=== PATIENT | female | born 2000 | race Caucasian/White ===

== ENCOUNTER 2024-03-26 11:38 | Emergency (ER) | payer OTHER, SELFPAY ==
--- NOTE | ~2024-03-26 | XR_ITS ---
Left ankle Technique: AP, oblique, and lateral views were obtained. Clinical History: Injury Findings: No acute fracture or dislocation is seen. Osseous alignment is anatomic. Ankle mortise and other visualized joint spaces are preserved. Soft tissues are otherwise unremarkable. Impression: Unremarkable left ankle. Reviewed, dictated and finalized at location . Impression: Unremarkable left ankle.
[2024-03-26 11:47] VITALS: BP 99/67; PULSE 86; RESP 16; TEMP 36.2; O2SAT 99
--- NOTE | 2024-03-26 11:59 | ED.LOWEXIN ---
HPI - Extremity Injury (Lower) General Chief Complaint: Extremity Injury, Lower Stated Complaint: INJURED L ANKLE Time Seen by Provider: 03/26/24 11:53 Source: patient and RN notes reviewed Mode of arrival: ambulatory Limitations: no limitations History of Present Illness HPI Narrative: Patient presents today complaining of left ankle injury. She tripped over a box 1 week ago and twisted ankle. No pain at rest, but this increases with movement and weight-bearing. She has been elevating the ankle, icing it, and resting it, which has provided some mild relief. Related Data Home Medications Medication Instructions Recorded Confirmed cyclobenzaprine 10 mg tablet 10 mg PO PRN PRN Back Pain 03/26/24 03/26/24 Allergies Allergy/AdvReac Type Severity Reaction Status Date / Time ibuprofen Allergy Hives Verified 03/26/24 11:55 Review of Systems Review of Systems: CONSTITUTIONAL: Denies body aches, fever, chills, or sweats. EYES: Denies visual changes, redness, or discharge. ENT: Denies rhinorrhea, congestion, sore throat, or otalgia. CARDIOVASCULAR: Denies chest pain, palpitations, or edema. RESPIRATORY: Denies cough or dyspnea. GASTROINTESTINAL: Denies abdominal pain, nausea, vomiting, or diarrhea. GENITOURINARY: Denies dysuria or hematuria. SKIN: Denies rash, itching, or wounds. MUSCULOSKELETAL: Denies back pain, or myalgia.+ left ankle pain and swelling NEUROLOGIC: Denies headache, numbness, tingling, or weakness. PSYCH: Denies depression or anxiety. PMFSH Comments At time of signature, I have reviewed and agree with nursing past medical, surgical, social and family history unless otherwise noted. Please see nursing chart for further information. There is no relevant family history pertinent to the presenting complaint Exam Narrative: GENERAL: Well-appearing, well-nourished, and in no acute distress. HEAD: Normocephalic, atraumatic. EYES: EOMI. No redness or drainage. Conjunctivae normal. ENT: Mucous membranes pink and moist. NECK: Normal AROM. CHEST: No respiratory distress. EXTREMITIES: Left ankle: Tenderness and mild soft tissue swelling to the lateral ankle, including the lateral malleolus. This extends proximally up the fibula approximately 5-6 cm. No tenderness edema to foot. No ecchymosis about the foot or ankle. Distal sensation intact. Capillary refill normal. Radial pulse normal. Pain with passive external rotation. SKIN: Warm, dry, no rash. Capillary refill normal. Normal skin turgor. NEURO: No focal deficits. Alert and oriented x3. Gait steady. PSYCH: Normal affect. No signs of depression or anxiety. Course Course Level of Care: Express Care Visit Vital Signs Vital signs: Vital Signs Temperature 97.2 F L 03/26/24 11:47 Pulse Rate 86 03/26/24 11:47 Respiratory Rate 16 03/26/24 11:47 Blood Pressure 99/67 L 03/26/24 11:47 Pulse Oximetry 99 03/26/24 11:47 Temperature 97.2 F L 03/26/24 11:47 Pulse Rate 86 03/26/24 11:47 Respiratory Rate 16 03/26/24 11:47 Blood Pressure 99/67 L 03/26/24 11:47 Pulse Oximetry 99 03/26/24 11:47 Reviewed MDM - Extremity Injury (Lower) MDM Narrative Medical decision making narrative: X-rays negative for fracture. Recommend orthopedic follow-up soon if symptoms are not improving. His wrap applied. Anticipatory guidance given. Differential Diagnosis Differential diagnosis: Likely ankle sprain and strain and ankle fracture Imaging Data Radiologist's impression: ITS Impressions Ankle X-Ray 03/26/24 12:11 Impression: Unremarkable left ankle. Critical Care Time Critical Care Time Critical Care Time: No Discharge Plan Discharge Clinical Impression: Left ankle sprain Qualifiers: Encounter type: initial encounter Involved ligament of ankle: unspecified ligament Qualified Code(s): S93.402A - Sprain of unspecified ligament of left ankle, initial encounter Patient Disposition
== END 2024-03-26 12:22 | disposition home or self-care (01) ==
PROVIDERS: Emergency Provider Nurse Practitioner
DX: S93.402A Sprain of unspecified ligament of left ankle, initial encounter (principal); W22.8XXA Striking against or struck by other objects, initial encounter; D89.89 Other specified disorders involving the immune mechanism, not elsewhere classified
CPT/HCPCS: 73610; 99212; G0463

== ENCOUNTER 2025-08-03 16:34 | Emergency (ER) | payer OTHER, SELFPAY ==
[2025-08-03 16:50] VITALS: BP 97/66; PULSE 91; RESP 16; TEMP 36.3; O2SAT 100
--- NOTE | 2025-08-03 17:15 | ED.SKABFB ---
HPI - Skin/Abscess/Foreign Bdy General Chief complaint: Skin/Abscess/Foreign Body Stated complaint: Cyst on Face Time Seen by Provider: 08/03/25 17:00 Source: patient and RN notes reviewed Mode of arrival: ambulatory Limitations: no limitations History of Present Illness HPI narrative: 24-year-old female presents to the [facility] with significant other complaining of redness and swelling and pain to the left side of her nose. Patient reports a history of acne, she says she has had this occur before right side of her nose that required incision and drainage. Patient has tried [id number] acne products a benzyl peroxide, warm compresses, tooth paste, and essential oils without relief. Patient has any fevers, body aches, chills, nausea, vomiting, vision changes, headaches, or any other symptoms. Related Data Home Medications ?Medication ?Instructions ?Recorded ?Confirmed ?Last Taken ?Type sumatriptan succinate 50 mg tablet mg PO 08/03/25 Unknown History Allergies Allergy/AdvReac Type Severity Reaction Status Date / Time ibuprofen Allergy Hives Verified 08/03/25 16:39 Review of Systems Review of Systems: CONSTITUTIONAL: Denies fever, chills, or sweats. EYES: Denies visual changes, redness, or discharge. ENT: Denies rhinorrhea, congestion, sore throat, or otalgia. CARDIOVASCULAR: Denies chest pain, palpitations, or edema. RESPIRATORY: Denies cough or dyspnea. GASTROINTESTINAL: Denies abdominal pain, nausea, vomiting, or diarrhea. GENITOURINARY: Denies dysuria or hematuria. SKIN: Denies rash or itching. Positive for redness and swelling. MUSCULOSKELETAL: Denies back pain, joint pain, or myalgia. NEUROLOGIC: Denies headache, numbness, or weakness. PSYCHIATRIC: Denies anxiety or depression. All other systems reviewed are negative, except as documented in HPI. PMFSH Comments At the time of my signature, I reviewed and agree with the nursing past medical, surgical, social, and family history. There is no relevant family history pertinent to the patient complaint. Exam Narrative: GENERAL: This is a well-nourished, well-developed adult, in no apparent distress. They are non ill-appearing, nontoxic appearing. HEAD: normocephalic, atraumatic. EYES: Sclera clear/white. Conjunctiva normal. Vision is grossly intact. Extraocular movements intact EARS: External ears normal, Hearing grossly intact. NOSE: External nose normal with no obvious nasal discharge, nasal turbinates without redness, no rhinorrhea. THROAT: Mucous membranes moist, NECK: Neck supple, CARDIOVASCULAR: Regular rate and rhythm RESPIRATORY: Respiratory rate normal, respiratory effort nonlabored, no respiratory distress SKIN: Erythematous nodule to the left side of the nose. Measuring approximately 2 cm x 1 cm. It is tender to palpate. No area of fluctuance, no induration, no exudate. NEURO: awake, alert, and oriented to person, place and time. There were no obvious focal neurologic abnormalities. EXTREMITIES: No joint tenderness, effusion, or edema noted. BACK: Nontender without deformity. Course Course Emergency Course: Portions of this record may have been created with voice recognition software Level of Care: Express Care Visit Vital Signs Vital signs: Vital Signs Temperature 97.4 F L 08/03/25 16:50 Pulse Rate 91 08/03/25 16:50 Respiratory Rate 16 08/03/25 16:50 Blood Pressure 97/66 L 08/03/25 16:50 Pulse Oximetry 100 08/03/25 16:50 Temperature 97.4 F L 08/03/25 16:50 Pulse Rate 91 08/03/25 16:50 Respiratory Rate 16 08/03/25 16:50 Blood Pressure 97/66 L 08/03/25 16:50 Pulse Oximetry 100 08/03/25 16:50 Reviewed MDM - Skin/Abscess/Foreign Bdy MDM Narrative Medical decision making narrative: Discussed physical exam findings. Advised supportive measures and signs/symptoms to go to the ER. Pt is appropriate for outpt treatment and f/u. Critical Care Time Critical Care Time Critical Care Time: No Discharge Plan Discharge Clinical Impression: Abscess of face Patient Disposition: Home Condition: Stable Instructions: Antibiotic Form, Acne (ED) Additional Instructions: DO NOT pick at the area. This will only make the area worse and drive infection deeper. Wash her face daily with warm water and daily facial washer. Apply benzoyl peroxide topically twice a day. Take all the antibiotics as prescribed. Follow up with PCP in 3-5 days Go to the ER if he developed worsening redness, swelling, pain, vision changes, headaches, fevers, or any serious concerns. Patient Language: Greek Prescriptions: New doxycycline monohydrate 100 mg capsule 100 mg PO BID 7 Days Qty: 14 0RF No Action sumatriptan succinate 50 mg tablet PO Follow-up/Referrals: PHYSICIAN,[facility]ER [Primary Care Provider, Internal Medicine] Time of Disposition: 17:10
== END 2025-08-03 17:13 | disposition home or self-care (01) ==
DX: J34.0 Abscess, furuncle and carbuncle of nose (principal); Z79.899 Other long term (current) drug therapy
CPT/HCPCS: 99213; G0463